=== PATIENT | female | born 1965 | race Caucasian/White ===

== ENCOUNTER 2020-03-06 09:36 | Emergency (ER) | payer MEDICAID ==
[~2020-03-06] VITALS: Ht 167.6 cm; Wt 100.0 kg
[2020-03-06] MEDS ORDERED: ONDA4TAB6 PO (09:56)
== END 2020-03-06 10:13 | disposition home or self-care (01) ==
LOC: ER 09:37
DX: B34.9 Viral infection, unspecified (principal); Z20.828 Contact with and (suspected) exposure to other viral communicable diseases; Z79.899 Other long term (current) drug therapy
CPT/HCPCS: 36415; 99282